=== PATIENT | female | born 1985 | race Caucasian/White ===

== ENCOUNTER 2020-04-24 11:38 | Emergency (ER) | payer SELFPAY ==
[2020-04-24 11:41] VITALS: BP 141/102; PULSE 110; RESP 19; TEMP 37; O2SAT 98
== END 2020-04-24 12:20 | disposition left against medical advice (07) ==
LOC: ANHED 12:18
PROVIDERS: Emergency Provider Emergency Medicine
DX: M54.9 Dorsalgia, unspecified (principal)
CPT/HCPCS: 99199

== ENCOUNTER 2022-10-16 09:54 | Day surgery (SDC) | payer OTHER, SELFPAY ==
[2022-10-03 11:09] VITALS: BMI 36.3
[2022-10-16 11:16] VITALS: BP 150/83; PULSE 81; RESP 20; TEMP 36.6; O2SAT 100
[2022-10-16] MEDS: LACTATED RINGERS 1,000 ML 150 ML IV CONT (11:20)
--- NOTE | 2022-10-16 11:25 | P.PNAN_ITS ---
Anes - Initial Pre Proc Eval Procedure: Operation Date: 10/16/22 12:15 Proposed Procedures p Diagnositic Colonoscopy - Troy Bravo MD Date/Time: 10/16/22 11:25 Surgeon: Troy Bravo MD Pre Op Diagnosis: Bloody stools Patient Data Age: 37 Gender: F Height: 1.68 m Weight: 98.9 kg Last Vital Signs Temp 36.6 C 10/16/22 11:16 Pulse 81 10/16/22 11:16 Resp 20 10/16/22 11:16 BP 150/83 H 10/16/22 11:16 Pulse Ox 100 10/16/22 11:16 O2 Del Method Room Air 10/16/22 11:16 Allergies Allergy/AdvReac Type Severity Reaction Status Date / Time No Known Allergies Allergy Unknown Verified 10/16/22 11:10 Home Medications Medication Instructions Recorded Confirmed Type sodium,potassium,mag sulfates 17.5 See Rx Instructions PO .COMPLEX 09/27/22 10/04/22 Rx gram-3.13 gram-1.6 gram oral soln #354 mL (Suprep Bowel Prep Kit) amlodipine 5 mg tablet 5 mg PO DAILY 09/28/22 10/04/22 History linaclotide 72 mcg capsule 72 mcg PO DAILY 09/28/22 10/04/22 History (Linzess) valacyclovir 1 gram tablet 1,000 mg PO DAILY 09/28/22 10/04/22 History (Valtrex) polyethylene glycol 3350 17 gram 17 g PO DAILY 10/03/22 10/04/22 History oral powder packet (Miralax) Patient hx anesthesia problems: none Family hx anesthesia problems: none Results Review: All pre-operative results and documents have been reviewed as part of the pre- operative evaluation. [facility] Past Medical History Medical History Anxiety Hypertension Obesity Smoker Surgical History Surgical History S/P cholecystectomy Family History Family History Sibling Family history of diabetes mellitus in first degree relative Other Diabetes mellitus Hypertension Cancer Social History Social History (Updated 10/16/22 @ 11:30 by Ajay Davidson MD) Smoking packs per day: 1 Smoking cigarettes per day: 20.0 Years smoked: 20 Smoking pack-years: 20.00 Smoking status: Current every day smoker Tobacco type: cigarettes Alcohol intake: unknown Substance use: never Substance use type: does not use Living arrangements: with family Gender identity (if verbalized by the patient): Female Spiritual care concerns: No Anes - Eval Final PreProcedure Day of Procedure 10/16/22 11:25 Patient weight: normal Heart: regular rate and rhythm Lungs: clear to auscultation Airway: Mallampati scale class II Neurological: alert and oriented Last oral intake: >/= 8 hours ASA classification: III Emergent: no Anesthesia type and monitoring: general GIVS and standard monitoring Results Review: All pre-operative results and documents have been reviewed as part of the pre- operative evaluation. Informed Consent: The patient's anesthetic plan and its attendant risks and benefits were discussed with the patient/family/POA. Questions were solicited and answers provided to the satisfaction of the patient/family/POA.
--- NOTE | 2022-10-16 11:29 | PM.HPGS ---
History of Present Illness History of Present Illness Consent: Risks, benefits, and alternatives have been discussed and questions answered. Patient agrees to proceed with procedure. Chief complaint: Bloody stools Narrative: Joan Branch is a 37 year old female presents for colonoscopy. Patient reports that a month or so ago had episode of red blood on the outside of a bowel movement at the end of a bowel movement. This did occur on several occasions. She continued to have occasional pain after a bowel movement. For this reason sent to surgery. Surgeon confirmed anal fissure. Patient states pain is subsequently improved. Her bowel habits remain fairly normal at present she is referred for further evaluation to exclude other causes of bleeding. Patient now is implemented fiber supplementation and a high-fiber diet. Family history is noncontributory. Review of Systems Review of Systems: Review of systems noncontributory. [facility] Past Medical History Medical History Anxiety Hypertension Obesity Smoker Surgical History Surgical History S/P cholecystectomy Family History Family History Sibling Family history of diabetes mellitus in first degree relative Other Diabetes mellitus Hypertension Cancer Social History Social History Smoking packs per day: 1 Smoking cigarettes per day: 20.0 Years smoked: 20 Smoking pack-years: 20.00 Smoking status: Current every day smoker Tobacco type: cigarettes Alcohol intake: unknown Substance use: never Substance use type: does not use Living arrangements: with family Gender identity (if verbalized by the patient): Female Spiritual care concerns: No Meds Home Medications and Allergies Home Medications Medication Instructions Recorded Confirmed Type sodium,potassium,mag sulfates 17.5 See Rx Instructions PO .COMPLEX 09/27/22 10/04/22 Rx gram-3.13 gram-1.6 gram oral soln #354 mL (Suprep Bowel Prep Kit) amlodipine 5 mg tablet 5 mg PO DAILY 09/28/22 10/04/22 History linaclotide 72 mcg capsule 72 mcg PO DAILY 09/28/22 10/04/22 History (Linzess) valacyclovir 1 gram tablet 1,000 mg PO DAILY 09/28/22 10/04/22 History (Valtrex) polyethylene glycol 3350 17 gram 17 g PO DAILY 10/03/22 10/04/22 History oral powder packet (Miralax) Allergies Allergy/AdvReac Type Severity Reaction Status Date / Time No Known Allergies Allergy Unknown Verified 10/16/22 11:10 Vital Signs Vital Signs - 24 hr 10/16/22 11:16 Temperature 98 F Pulse Rate 81 Respiratory Rate 20 Blood Pressure 150/83 H Pulse Oximetry 100 Oxygen Delivery Room Air Exam Narrative: Physical exam reveals patient be alert. Vital signs stable. HEENT exam is unremarkable. Patient is anicteric. Lungs are clear to auscultation and percussion. Heart is without murmur extra sounds. Abdomen bowel sounds present soft nontender with no organomegaly. Digital external rectal exam is normal. Assessment and Plan Assessment and plan (1) Blood in stool: Code(s): K92.1 - Melena Status: Acute Assessment and Plan: Patient with recent episode of blood in stool for this reason referred for colonoscopy. Given the finding of an anal fissure this in hemorrhoids are likely etiology. High-fiber diet with fiber supplementation encouraged. Further recommendations may be given after endoscopy. (2) Anal fissure: Code(s): K60.2 - Anal fissure, unspecified Status: Acute Assessment and Plan: Patient has seen surgeon in conservative management advised initially. High-fiber diet stool softeners are suggested at this time.
[2022-10-16 11:53] VITALS: BP 145/87; PULSE 63; RESP 16; O2SAT 97
--- NOTE | 2022-10-16 11:58 | WPDANESPN ---
Anes - Prog Note Post-Op Date/Time: 10/16/22 11:58 Cardiovascular status: normal Respiratory status: normal Airway patency: baseline Mental status: baseline Post-Op hydration status: normal Vital Signs: Last Vital Signs Temp 36.6 C 10/16/22 11:16 Pulse 63 10/16/22 11:53 Resp 16 10/16/22 11:53 BP 145/87 H 10/16/22 11:53 Pulse Ox 97 10/16/22 11:53 O2 Del Method Room Air 10/16/22 11:53 Pain Score (VAS): 0/10 I/O: Intake & Output 10/15/22 10/16/22 10/16/22 23:59 07:59 15:59 Intake Total 300 Balance 300 Patient Feedback: Patient satisfied with anesthetic care.
[2022-10-16 12:03] VITALS: BP 148/90; PULSE 60; RESP 16; O2SAT 100
[2022-10-16 12:15] VITALS: BP 143/86; PULSE 62; RESP 18; O2SAT 100
== END 2022-10-16 12:23 | disposition home or self-care (01) ==
PROVIDERS: PCP Family Medicine; Visit Provider Internal Medicine Gastroenterology
PROC: 0DJD8ZZ Inspection of Lower Intestinal Tract, Via Natural or Artificial Opening Endoscopic (ICD-10-PCS; CPT 45378; principal; 2022-10-16 12:15)
DX: K92.1 Melena (principal)
CPT/HCPCS: 45378

== ENCOUNTER 2023-03-27 10:22 | Outpatient (CLI) | payer OTHER, SELFPAY ==
--- NOTE | 2023-03-27 10:40 | ECG_ITS ---
Measurements Intervals [place] Rate: 64 P: 42 [place]: 156 QRS: 79 QRSD: 79 T: 47 QT: 362 QTc: 374 Interpretive Statements SINUS RHYTHM FREQUENT ATRIAL PREMATURE COMPLEXES CANNOT RULE OUT SEPTAL INFARCT, AGE INDETERMINATE ABNORMAL ECG NO PREVIOUS ECG AVAILABLE FOR COMPARISON Electronically Signed On 03-27-2023 11:55:03 CDT by Melecio Hudson D.O.
== END 2023-03-27 10:23 | disposition home or self-care (01) ==
LOC: ANHSURGERY 10:26
PROVIDERS: PCP Family Medicine; Visit Provider Obstetrics & Gynecology
DX: N83.209 Unspecified ovarian cyst, unspecified side (principal); I10 Essential (primary) hypertension; Z01.818 Encounter for other preprocedural examination
CPT/HCPCS: 36415; 86850; 86900; 86901; 93005

== ENCOUNTER 2023-03-30 02:44 | Day surgery (SDC) | payer OTHER, SELFPAY ==
[2023-03-23 15:15] VITALS: BMI 31.4
--- NOTE | 2023-03-23 15:20 | PC.NURSE ---
Report to the Outpatient Waiting Room, entrance under the green pavilion located off [facility], at time 12:30 on date 03/30/23. Planned Procedure Time: 2:30. Time changes happen often and if your time is changed the preop area will call you the afternoon before. - You and your visitor will be asked to self-screen and do not enter if you have any COVID symptoms. - A mask is optional within the hospital at this time. Patients may have clear liquids (water, carbonated beverages, clear teas, apple juice) until 3 hours prior to surgery with a maximum of 20 ounces. - No food from midnight until time of surgery Take the following medications with a SIP of water the morning of surgery: AMLODIPINE DO NOT STOP ANY OF YOUR OTHER PRESCRIPTION MEDICATIONS PRIOR TO SURGERY EXCEPT THE FOLLOWING Medications to discontinue per physician: VITAMINS/SUPPLEMENTS Date to take last dose: 03/26/23 Please no make-up, nail tamazight, hairspray, perfume, deodorant, or body powder the day of surgery. No jewelry (including any body piercings) or valuables the day of surgery, leave them at home. Please take a shower or bath the night before, or the morning of, surgery with an antibacterial soap. Wear comfortable, loose fitting clothing. - Jewelry must be removed prior to entering the operating room. Rings and piercings that are not removed may be cut off. - The hospital will not accept responsibility for valuables. - Please leave all valuables, including medications, at home the day of surgery. If you are going home after surgery, a licensed ambulette driver must drive you home. - NO public transportation without another adult if you receive anesthesia. - We recommend that an adult stay with you for 24 hours following discharge. - We also recommend that you do not drive, make important decision, drink alcoholic beverages, or take any drugs that were not prescribed by your health care provider for at least 24 hours after your discharge time. Follow any additional instructions given to you from your surgeon. If you or anyone in your household have experienced Covid symptoms in the past week, please notify your surgeon or the nurse liaison at the phone number below for possible testing. Telephone instructions given to PT - PIA CALVILLO and asked if any additional questions and then verbalized understanding. Patient advised to call surgeon office or pre surgery nurse liaison [phone] if any additional questions.
--- NOTE | 2023-03-28 07:55 | PM.IMHP ---
H&P: HPI History of Present Illness Date/Time: 03/28/23 07:55 Chief Complaint: pelvic pain with left ovarian cyst Narrative: the patient is admitted for laparoscopy with left cystectomy and possible left salpingo-oophorectomy. She has had pain in the perirectal area on the left side exactly where that ovary is. The risks and benefits of this procedure reviewed including but not exclusive of , aspiration pneumonia, bleeding, transfusion, perforation injury to bowel, bladder, ureters, or other internal organs with need for open laparotomy. She received the [employer] handout entitled laparoscopy parents she had all questions answered. She asked to proceed PMF Past Medical History Medical History Anxiety Hypertension Obesity Smoker Surgical History Surgical History S/P cholecystectomy Family History Family History Sibling Family history of diabetes mellitus in first degree relative Other Diabetes mellitus Hypertension Cancer Social History Social History Smoking packs per day: 0.5 Smoking cigarettes per day: 10.0 Years smoked: 20 Smoking pack-years: 10.00 Smoking status: Current every day smoker Tobacco type: cigarettes Alcohol intake: never Substance use: current Substance use type: marijuana Living arrangements: alone Gender identity (if verbalized by the patient): Female Spiritual care concerns: No Meds Home Medications and Allergies Home Medications Medication Instructions Recorded Confirmed Type amlodipine 5 mg tablet 5 mg PO DAILY 09/28/22 03/23/23 History Allergies Allergy/AdvReac Type Severity Reaction Status Date / Time No Known Allergies Allergy Unknown Verified 03/23/23 15:13 Exam Const: General: cooperative, healthy appearing, comfortable, well groomed and average body habitus Orientation/consciousness: oriented to person, oriented to place and oriented to time HENMT: Head: normal to inspection Resp: Effort & Inspection: normal respiratory effort Cardio: Rate: regular rate Rhythm: regular rhythm Heart sounds: S1 normal heart sound present and S2 normal heart sound present GI: Inspection: normal to inspection Percussion: Yes normal to percussion Auscultation: normal bowel sounds : External Female Exam: normal external appearance Speculum Exam - Vagina: normal appearance of the vagina Speculum Exam - Cervix: normal appearance of the cervix Bimanual exam- vagina & uterus: uterine size normal Bimanual Exam- Adnexa, other: Adnexal mass present on the left tender Assessment and Plan Assessment and plan (1) Pelvic pain: Code(s): R10.2 - Pelvic and perineal pain Status: Acute (2) Left ovarian cyst: Code(s): N83.202 - Unspecified ovarian cyst, left side Status: Acute Plan laparoscopy with left cystectomy and possible left salpingo-oophorectomy
[2023-03-30] VITALS (9 sets, daily range): BP systolic 101–154; BP diastolic 49–97; PULSE 59–86; RESP 11–18; TEMP 36.6–36.8; O2SAT 94–99
--- NOTE | 2023-03-30 06:24 | WPDHPUPDATE1 ---
History and Physical Update Update Date/Time: 03/30/23 06:24 History and Physical has been reviewed, including an updated exam of the patient. There are NO changes in the patient's condition. Risks, benefits, and alternatives have been discussed and questions answered. Patient agrees to proceed with procedure.
--- NOTE | 2023-03-30 06:25 | WPDHPUPDATE1 ---
History and Physical Update Update Date/Time: 03/30/23 06:25 History and Physical has been reviewed, including an updated exam of the patient. There are NO changes in the patient's condition. Risks, benefits, and alternatives have been discussed and questions answered. Patient agrees to proceed with procedure.
[2023-03-30] MEDS: LACTATED RINGERS 1,000 ML 30 ML IV CONT ×2 (13:00→16:00)
[2023-03-30] MEDS: KETOROLAC 15 MG/ML VIAL (*BKC) IV PUSH (13:30)
[2023-03-30] MEDS: MIDAZOLAM HCL (*CRX) 2 MG/2 ML VIAL IV PUSH (13:30)
[2023-03-30] MEDS: ACETAMINOPHEN 500 MG TABLET 1000 MG PO (13:30)
--- NOTE | 2023-03-30 14:17 | WPDANESEPPF ---
Anes - Initial Pre Proc Eval Procedure: Operation Date: 03/30/23 14:30 Proposed Procedures p Diagnostic Laparoscopy with Left Ovarian Cystectomy, Possible Left Salpingo-oophorectomy - Ajay Li MD Date/Time: 03/30/23 14:17 Surgeon: Ajay Li MD Pre Op Diagnosis: Pelvic Pain, Lt Ovarian Cyst Patient Data Age: 38 Gender: F Height: 1.68 m Weight: 86 kg Last Vital Signs Temp 98.2 F 03/30/23 13:00 Pulse 85 03/30/23 13:00 Resp 16 03/30/23 13:00 BP 127/89 03/30/23 13:00 Pulse Ox 99 03/30/23 13:00 O2 Del Method Room Air 03/30/23 13:00 Allergies Allergy/AdvReac Type Severity Reaction Status Date / Time No Known Allergies Allergy Unknown Verified 03/30/23 13:30 Home Medications Medication Instructions Recorded Confirmed Type amlodipine 5 mg tablet 5 mg PO DAILY 09/28/22 03/30/23 History hydrocodone 5 mg-acetaminophen 325 1 tablet PO Q4H PRN pain #20 tabs 03/30/23 Rx mg tablet Patient hx anesthesia problems: none Family hx anesthesia problems: none Results Review: All pre-operative results and documents have been reviewed as part of the pre-operative evaluation. [facility] Past Medical History Medical History Anxiety Hypertension Obesity Smoker Surgical History Surgical History S/P cholecystectomy Family History Family History Sibling Family history of diabetes mellitus in first degree relative Other Diabetes mellitus Hypertension Cancer Social History Social History Smoking packs per day: 0.5 Smoking cigarettes per day: 10.0 Years smoked: 20 Smoking pack-years: 10.00 Smoking status: Current every day smoker Tobacco type: cigarettes Alcohol intake: never Substance use: current Substance use type: marijuana Living arrangements: alone Gender identity (if verbalized by the patient): Female Spiritual care concerns: No Anes - Eval Final PreProcedure Day of Procedure 03/30/23 14:17 Patient weight: obese Heart: regular rate and rhythm Lungs: clear to auscultation Airway: Mallampati scale class III Neurological: alert and oriented Last oral intake: >/= 8 hours ASA classification: II Emergent: no Anesthetic plan: proceed Anesthesia type and monitoring: general ETT and standard monitoring Results Review: All pre-operative results and documents have been reviewed as part of the pre-operative evaluation. Informed Consent: The patient's anesthetic plan and its attendant risks and benefits were discussed with the patient/family/POA. Questions were solicited and answers provided to the satisfaction of the patient/family/POA.
--- NOTE | 2023-03-30 14:56 | P.OP_ITS ---
Procedure Note - Detailed Date of Procedure 03/30/23 Pre-op Diagnosis Pelvic Pain, Lt Ovarian Cyst Post-op Diagnosis Same Procedure Performed Laparoscopic left salpingo-oophorectomy Surgeon Ajay Li MD Anesthesia General Indications this is a 38-year-old female with severe left-sided pelvic pain and left ovarian cyst Findings left ovarian cyst. Normal-appearing uterus ovary and tube on the opposite side. Description of Procedure The patient was prepped draped in the normal sterile fashion placed in the dorsal lithotomy position. Under excellent general trach anesthesia weighted speculum placed posterior fornix vagina anterior lip of the cervix grasped with single-tooth tenaculum. Walsh's cannula inserted the cervix and attached to the single-tooth used later for uterine manipulation. After emptying bladder clear urine the weighted speculum was removed the gloves were changed. An infraumbilical incision made. Veress needle passed in the abdomen. Abdomen filled with CO2 gas [id number]. 5Mm trocar advanced under direct visualization with the Optiview and no injury seen. Patient placed in Trendelenburg and a suprapubic incision made. The 5mm trocar advanced under dir ect visualization assuring no injury. The moderate-sized ovarian cyst was seen on the left. Decision was made to undertake left salpingo-oophorectomy. A left lower quadrant incision made and the 10mm trocar advanced under direct visualization assuring no injury. The infundibulopelvic structure was then clamped burned and cut the ovary and tube complex were placed in an Endo-Catch removed through the left lower quadrant. Irrigation undertaken to clear. No other abnormalities were seen. The hemostasis was assured. The lower sites removed. The gas removed from the abdomen. Incisions closed with 4 Monocryl and glue. Patient was awakened went to recovery in satisfactory condition. All sponge, needle, instrument counts were correct. There were no immediate complications Estimated Blood Loss 5 Drains No Packing No Pathology Yes Complications No immediate complications Condition Stable Disposition PACU
[2023-03-30] MEDS: fentaNYL CITRATE INJ (*CRX) 100 MCG/2 ML VIAL 25 MCG IV PUSH ×2 (15:29→15:37)
[2023-03-30] MEDS: oxyCODONE HCL (*CRX) 5 MG TAB IR PO (16:45)
== END 2023-03-30 17:21 | disposition home or self-care (01) ==
PROVIDERS: PCP Family Medicine; Visit Provider Obstetrics & Gynecology
PROC: (CPT 49320; principal; 2023-03-30 14:30)
DX: N83.12 Corpus luteum cyst of left ovary (principal); R10.2 Pelvic and perineal pain; I10 Essential (primary) hypertension; E66.9 Obesity, unspecified; Z68.30 Body mass index [BMI] 30.0-30.9, adult; F17.210 Nicotine dependence, cigarettes, uncomplicated; F12.90 Cannabis use, unspecified, uncomplicated
CPT/HCPCS: 58661; 36415; 86850; 86900; 86901; 88305; 93005; A9270; J0330; J1100; J1885; J2250; J2405; J2704; J3010; J7030; J7120